=== PATIENT | female | born 1955 | race Caucasian/White ===

== ENCOUNTER 2017-05-01 07:27 | Day surgery (SDC) | payer MEDICARE, BC ==
[~2017-05-01 07:27] MED LIST: Lactated Ringers 1,000 ML IV SCH; ceFAZolin 2 GM in Sodium Chloride 0.9% 50 ML IV ONE
[2017-05-01] MEDS ORDERED: ceFAZolin 1 GM Vial ONE (07:44)
[2017-05-01] MEDS ORDERED: Lidocaine 1% 30 ML SDV ONE (09:05)
[2017-05-01 11:59] VITALS: BP 155/74
== END 2017-05-01 10:40 | disposition home or self-care (01) ==
LOC: LB.SDS 07:27
PROVIDERS: ATTEND Podiatrist Foot & Ankle Surgery
DX: M24.574 Contracture, right foot (principal); M20.41 Other hammer toe(s) (acquired), right foot; Z88.1 Allergy status to other antibiotic agents; Z88.8 Allergy status to other drugs, medicaments and biological substances
CPT/HCPCS: 28011; 28285; J0690; J7050; J7120